=== PATIENT | male | born 1985 ===

== ENCOUNTER 2019-05-14 13:47 | Outpatient (REF) | payer MEDICAID, SELFPAY ==
[2019-05-15 09:55] LABS: ALT 33 U/L (16-63); AST 19 U/L (15-37); Albumin 4.6 g/dL (3.4-5.0); Alkaline Phosphatase 55 U/L (46-116); Anion Gap 7.2 mmol/L (3-11); BUN 11 mg/dL (7-18); Bilirubin, Total 1.3 mg/dL (0.2-1.0); CO2 29.8 mmol/L (21.0-32.0); CREATININE 0.96 mg/dL (0.70-1.30); Chloride 104 mmol/L (98-107); Glucose 97 mg/dL (74-106); Potassium 4.1 mmol/L (3.5-5.1); Sodium 141 mmol/L (136-145); TSH (W/Ref FT4) 2.75 uIU/mL (0.36-3.74); Total Protein 7.2 g/dL (6.4-8.2); Vitamin B12 203 pg/mL (193-986)
[2019-05-15 10:03] LABS: C-Reactive Protein 0.05 mg/dL (0.0-0.3)
[2019-05-16 10:53] LABS: Lyme Ab w Rflx to Lyme Confirm Negative (Negative)
[2019-05-16 13:29] LABS: ANA Interpretation Negative (Negative)
[2019-05-18 08:43] LABS: Spotted Fever Group Ab IgG <1:64 (<1:64); Spotted Fever Group Ab IgM <1:64 (<1:64)
[2019-05-19 19:40] LABS: Anaplasma phagocytophilum Negative (Negative); B. miyamotoi PCR Negative (Negative); Babesia divergens/MO-1 Negative (Negative); Babesia duncani Negative (Negative); Babesia microti Negative (Negative); Ehrlichia chaffeensis Negative (Negative); Ehrlichia ewingii/canis Negative (Negative); Ehrlichia muris eauclairensis Negative (Negative)
[2019-05-21 11:58] LABS: Misc Referral (MAYO) See Comments
== END 2019-05-14 14:07 ==
LOC: NCHCN 13:47
PROVIDERS: PCP Family Medicine; Visit Provider Nurse Practitioner Community Health
DX: F41.8 Other specified anxiety disorders (principal); M79.18 Myalgia, other site; M25.50 Pain in unspecified joint
CPT/HCPCS: 80053; 82306; 86668; 87798; 82607; 84443; 86038; 86140; 86618; 86757

== ENCOUNTER 2020-01-20 14:55 | Outpatient (REF) | payer MEDICAID, SELFPAY ==
[2020-01-24 04:39] LABS: Patient Race White; SARS-CoV-2 RNA Undetected (Undetected); SARS-CoV-2 Specimen Source Nasal
== END 2020-01-20 15:15 ==
LOC: NCHCN 14:55
PROVIDERS: PCP Family Medicine; Visit Provider Nurse Practitioner Family
DX: Z20.828 Contact with and (suspected) exposure to other viral communicable diseases (principal)
CPT/HCPCS: U0003